=== PATIENT | female | born 1970 | race Caucasian/White ===

== ENCOUNTER 2019-02-23 18:08 | Observation (INO) ==
[~2019-02-23 18:08] MED LIST: Aminoglycoside Consult 1 EACH MC ONE
--- NOTE | 2019-02-23 19:45 | Emergency Department Note ---
Disposition Clinical Impression: Pneumonia Qualifiers: Pneumonia type: due to unspecified organism Laterality: right Lung location: lower lobe of lung Qualified Code(s): J18.1 - Lobar pneumonia, unspecified organism Anemia Qualifiers: Anemia type: unspecified type Qualified Code(s): D64.9 - Anemia, unspecified Disposition: Admitted As Inpatient Condition: Good Instructions: Bacterial Pneumonia (ED) Referrals: Elder Kang DO [Primary Care Provider] - Forms: ED Satisfaction Letter Time of Disposition: 21:11 General Adult HPI - General Chief complaint: ED Fever Stated complaint: Fever,Bodyaches Time Seen by Provider: 02/23/19 19:36 Source: patient, family Limitations: no limitations Nursing Notes Reviewed: Yes Vital Signs Reviewed: Yes - History of Present Illness HPI Narrative: 48-year-old female past medical history of hypertension, previous urosepsis presenting for 4 days of gradually progressive and worsening generalized malaise with body aches, fevers up to 103 managed well at home with Tylenol/ibuprofen. Patient states that since Friday she has felt general body aches, headaches, shortness of breath, mild intermittent cough. Patient denies nausea or vomiting no productive cough. Patient has no other medical conditions, no significant medications at this time. Onset (ago): day(s) Pain Severity: moderate Pain Scale: 5 Treatments Prior to Arrival: NSAID, other (Patient states she last took acetaminophen at 5:30 this evening.) - Related Data Home Medications Medication Instructions Recorded Confirmed Propranolol [Inderal] 20 mg PO DAILY 02/23/19 02/23/19 Spironolactone [Aldactone] 25 mg PO DAILY 02/23/19 02/23/19 l-Norgest/E.estradiol-E.estrad 1 each PO DAILY 02/23/19 02/23/19 [Seasonique 0.15-0.03-0.01 Tab] Allergies Allergy/AdvReac Type Severity Reaction Status Date / Time doxycycline Allergy Swelling Verified 02/23/19 18:28 of Lip/Tongue/Throat minocycline Allergy Swelling Verified 02/23/19 18:28 of Lip/Tongue/Throat Review of Systems: Constitutional: Admits fever, chills Cardiovascular: Admits chest pain which patient states is related to her generalized malaise and body aches/pains Respiratory: Admits to dyspnea Gastrointestinal: Denies: abdominal pain, nausea, vomiting, diarrhea, constipation, hematemesis, melena, hematochezia Genitourinary: Denies: hematuria Musculoskeletal: Denies: back pain, neck pain Neurological: Admits to headache and weakness Endocrine: Admits to fatigue All systems ED: reviewed and negative except as stated. Review of Systems: As Per HPI Physical Exam Constitutional: No acute distress, [id number], engaged to conversation, speech is fluid, answers questions appropriately Neuro: GCS 15, no overt focal neurological deficits Head: Atraumatic, normocephalic Eyes: Pupils equal, round and reactive to light, no scleral icterus, no conj unctival injection, mucous membranes appear pale Neck: Trachea midline without deviation. Anterior neck is supple without swelling. *Chest: Symmetric chest wall rise *Heart: Cardiac rhythm and rate are regular with S1 and S2 , no S3 or S4 appreciated, no murmurs, gallops, rubs, or clicks. *Lungs: Crackles noted in the right lower lobe, tachypnea, without accessory muscle use or prolonged expiratory phase. No wheezes, rhonchi or stridor appreciated. Abdomen: Abdomen is flat, soft to palpation, normal bowel sounds. No abdominal bruit auscultated. Non-distended, non-rigid, no organomegaly, no ascites appreciated. No pulsatile mass, no tenderness or guarding to palpation in all four quadrants, no rebound Extremities: Normal capillary refill without evidence of pedal edema, joint swelling or erythema. Pulses and motor intact in extremities Psychiatric exam: Patient displays a normal affect and mood for the environment. No overt signs of hallucination. Integumentary: Warm, clammy, intact, pale. No rash, cyanosis, diaphoresis, erythema - General Limitations: no limitations General appearance: alert, in no apparent distress - Rectal Exam Jitterbug Operator present during exam: Yes Rectal exam: Present: normal inspection, normal rectal tone. Absent: black stool, bloody stool, hemorrhoids Course Course Narrative: CBC, BMP, urinalysis, blood and urine cultures Lactic acid Two-view chest x-ray Ibuprofen for fever and discomfort. 500 mL IV fluid Hemoccult Vital Signs Temperature 100.0 F H 02/23/19 18:28 Pulse Rate 112 02/23/19 18:28 Respiratory Rate 18 02/23/19 18:28 Blood Pressure 127/82 02/23/19 18:28 O2 Sat by Pulse Oximetry 98 02/23/19 18:28 Temperature 100.0 F H 02/23/19 20:57 Pulse Rate 111 02/23/19 21:07 Respiratory Rate 24 02/23/19 21:07 Blood Pressure 107/72 02/23/19 21:07 O2 Sat by Pulse Oximetry 100 02/23/19 21:07 Oxygen Delivery Oxygen Delivery Room Air Medical Decision Making - MDM Narrative Medical decision making narrative: Chest x-ray shows right lower lobe pneumonia Patient be started on azithromycin and ceftriaxone here in ED Patient with anemia with hemoglobin 7.8 Concerns for urinary tract infection Patient be admitted to hospitalist medicine service for further evaluation and management of pneumonia with anemia and potential UTI Patient verbalizes understanding and agreement this plan. - Lab Data Lab results reviewed: Yes I reviewed the patient's lab results. Result diagrams: 02/23/19 20:11 02/23/19 20:11 Lab Results 02/23/19 02/23/19 02/23/19 Range/Units 18:42 20:11 20:11 WBC 7.0 (4.3-11.1) K/mcL RBC 3.38 L (3.82-4.97) M/mcL Hgb 7.8 L (11.5-15.4) g/dL Hct 25.9 L (35.3-44.9) % MCV 76.6 L (83.0-100.0) fL MCH 23.1 L (28.0-33.3) pg MCHC 30.1 L (31.6-35.5) g/dL RDW 15.2 H (11.5-14.5) % Plt Count 408 H (140-400) K/mcL MPV 9.1 L (9.4-12.4) fL Immature Gran % 1.4 (0-4) % Seg Neutrophils % 70.6 % Lymphocytes % 17.5 % Monocytes % 8.4 % Eosinophils % 1.4 % Basophils % 0.7 % Neutrophils # 5.0 (1.6-8.9) K/mcL Lymphocytes # 1.2 (0.6-4.6) K/mcL Monocytes # 0.6 (0.0-1.3) K/mcL Eosinophils # 0.1 (0.0-0.6) K/mcL Basophils # 0.1 (0.0-0.2) K/mcL Nucleated RBCs/100 WBC 0.9 H (0) /100 WBC Sodium 134 L (136-145) mEq/L Potassium 4.0 (3.5-5.1) mEq/L Chloride 100 (98-107) mEq/L Carbon Dioxide 25 (23-29) mEq/L BUN 8 (6-20) mg/dL Creatinine 0.94 (0.60-1.20) mg/dL Est GFR ( Amer) > 60 (> 60) Est GFR (Non-Af Amer) > 60 (> 60) BUN/Creatinine Ratio 9 (6-26) Glucose 97 (70-105) mg/dL Calculated Osmolality 276 L (280-300) Lactic Acid (0.5-2.2) mmol/L Calcium 9.7 (8.6-10.3) mg/dL Urine Color Dark Yellow (Yellow) Urine Clarity Cloudy A (Clear) Urine pH 6.0 (5.0-8.0) pH Units Ur Specific Ignacio 1.017 (1.010-1.025) Urine Protein 100 H (Neg-Trace) mg/dL Urine Glucose (UA) Normal (Normal) mg/dL Urine Ketones Trace H (Negative) mg/dL Urine Blood Large H (Negative) Urine Nitrite Negative (Negative) Urine Bilirubin Small H (Negative) Urine Urobilinogen Normal (Normal) mg/dL Ur Leukocyte Esterase Small H (Negative) Urine Microscopic RBC 15-30 H (0-3) per hpf Urine Microscopic WBC 30-50 H (0-3) per hpf Ur Squamous Epith Cells Many H (None-Few) per lpf Urine Bacteria Few (None-Few) per hpf Hyaline Casts Few (None-Few) per lpf Ur Culture Indicated? YES A (NO) 02/23/19 Range/Units 20:11 WBC (4.3-11.1) K/mcL RBC (3.82-4.97) M/mcL Hgb (11.5-15.4) g/dL Hct (35.3-44.9) % MCV (83.0-100.0) fL MCH (28.0-33.3) pg MCHC (31.6-35.5) g/dL RDW (11.5-14.5) % Plt Count (140-400) K/mcL MPV (9.4-12.4) fL Immature Gran % (0-4) % Seg Neutrophils % % Lymphocytes % % Monocytes % % Eosinophils % % Basophils % % Neutrophils # (1.6-8.9) K/mcL Lymphocytes # (0.6-4.6) K/mcL Monocytes # (0.0-1.3) K/mcL Eosinophils # (0.0-0.6) K/mcL Basophils # (0.0-0.2) K/mcL Nucleated RBCs/100 WBC (0) /100 WBC Sodium (136-145) mEq/L Potassium (3.5-5.1) mEq/L Chloride (98-107) mEq/L Carbon Dioxide (23-29) mEq/L BUN (6-20) mg/dL Creatinine (0.60-1.20) mg/dL Est GFR ( Amer) (> 60) Est GFR (Non-Af Amer) (> 60) BUN/Creatinine Ratio (6-26) Glucose (70-105) mg/dL Calculated Osmolality (280-300) Lactic Acid 1.4 (0.5-2.2) mmol/L Calcium (8.6-10.3) mg/dL Urine Color (Yellow) Urine Clarity (Clear) Urine pH (5.0-8.0) pH Units Ur Specific Ignacio (1.010-1.025) Urine Protein (Neg-Trace) mg/dL Urine Glucose (UA) (Normal) mg/dL Urine Ketones (Negative) mg/dL Urine Blood (Negative) Urine Nitrite (Negative) Urine Bilirubin (Negative) Urine Urobilinogen (Normal) mg/dL Ur Leukocyte Esterase (Negative) Urine Microscopic RBC (0-3) per hpf Urine Microscopic WBC (0-3) per hpf Ur Squamous Epith Cells (None-Few) per lpf Urine Bacteria (None-Few) per hpf Hyaline Casts (None-Few) per lpf Ur Culture Indicated? (NO) Attestation Statement - Attestation Attestation: I, Jag Cuellar, examined this patient and my medical decision-making was reviewed with the FAMILY SOCIOLOGIST/PA/Advanced Practice Nurse/Resident Physician. I agree with the documented findings, disposition and treatment plan as described except to the extent set forth below. 48-year-old female presents emergency department for evaluation of weakness, fatigue, fever, shortness of breath. Patient states symptoms started within the past 3 days. She denies recent trauma. She does have a history of recent breathing difficulties intermittently over the past year. 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 Patient is otherwise healthy. Laboratory evaluation showed anemia. She will be admitted for further evaluation of her anemia and started on antibiotics in the emergency department.
[2019-02-23] MEDS ORDERED: 0.9 % Sodium Chloride 500 ML IVC ONE (19:48)
[2019-02-23] MEDS ORDERED: Ibuprofen 600 MG TABLET PO ONE (19:54)
[2019-02-23 20:07] LABS: Bilirubin,Urine Small (Negative); Blood,Urine Large (Negative); Clarity,Urine Cloudy (Clear); Color,Urine Dark Yellow (Yellow); Glucose,Urine (UA) Normal (Normal); Ketones,Urine Trace mg/dL (Negative); Leukocyte Esterase,Urine Small (Negative); Nitrite,Urine Negative (Negative); Protein,Urine 100 mg/dL (Neg-Trace); Specific Gravity,Urine 1.017 (1.010-1.025); Urobilinogen,Urine Normal (Normal)
[2019-02-23 20:08] LABS: Bacteria,Urine Few per hpf (None-Few); Hyaline Casts,Urine Few per lpf (None-Few); RBC,Urine 15-30 per hpf (0-3); Squamous Epithelial Cell,Urine Many per lpf (None-Few); WBC,Urine 30-50 per hpf (0-3)
[2019-02-23] MEDS ORDERED: Azithromycin 500 MG in D5% in Water 250 ML IVPB ONE (20:19)
[2019-02-23 20:25] LABS: Basophils # 0.1 K/mcL (0.0-0.2); Basophils % 0.7 %; Eosinophils # 0.1 K/mcL (0.0-0.6); Eosinophils % 1.4 %; Hematocrit 25.9 % (35.3-44.9); Hemoglobin 7.8 g/dL (11.5-15.4); Immature Granulocytes % 1.4 % (0-4); Lymphocytes # 1.2 K/mcL (0.6-4.6); Lymphocytes % 17.5 %; Mean Corpuscular HGB Conc 30.1 g/dL (31.6-35.5); Mean Corpuscular Hemoglobin 23.1 pg (28.0-33.3); Mean Corpuscular Volume 76.6 fL (83.0-100.0); Mean Platelet Volume 9.1 fL (9.4-12.4); Monocytes # 0.6 K/mcL (0.0-1.3); Monocytes % 8.4 %; Nucleated Red Blood Cells 0.9 /100 WBC (0); Platelet Count 408 K/mcL (140-400); Red Blood Count 3.38 M/mcL (3.82-4.97); Red Cell Distribution Width 15.2 % (11.5-14.5); Segmented Neutrophils % 70.6 %
[2019-02-23] MEDS ORDERED: cefTRIAXone 1,000 MG in Water for inj. (sterile) 20 ML 10 ML IVP ONE (20:28)
[2019-02-23 20:42] LABS: BUN/Creatinine Ratio 9 (6-26); Blood Urea Nitrogen 8 mg/dL (6-20); Calcium 9.7 mg/dL (8.6-10.3); Carbon Dioxide 25 mEq/L (23-29); Chloride 100 mEq/L (98-107); Glucose 97 mg/dL (70-105); Osmolality,Calculated 276 (280-300); Sodium 134 mEq/L (136-145); eGFR For Non-African Americans > 60 (> 60)
[2019-02-24 00:13] LABS: Hemoglobin 7.3 g/dL (11.5-15.4)
--- NOTE | 2019-02-24 02:19 | Internal Med History&Physical ---
<Uriel Dumont S - Last Filed: 02/24/19 03:36> Date of Encounter: 02/24/19 Time of Encounter: 02:42 Internal Medicine - H&P: HPI Chief complaint: felt sick Admitted From: Home Plans for Post Hospital Care: Home History of present illness: Ms. Erickson is a 48 year old female with PMH of HTN, obesity and headaches. She comes in with a 4 day history of increasing body aches and malaise. 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 She states that she has had fevers t max of 102. She states she took nothing for this. She went to an urgent care but they told her that she didn't have the flu and to go home. She has had some SOB and cough, some sputum production. She denies any chest pain, N/V/D, abd pain. She also denies recent hospitalization in the last 90 days, IV abx in the last 90 days. She states that she has not had any urinary changes, dysuria, hematuria or increased frequency. She does state that her life has been particularly st ressful lately and her father just had a LHC and her daughter had a high risk . She is also being worked up at [facility] for dysfunctional uterine bleeding. She was recently put on OCP so that she only has a period 1x every 3 mos. She has a hx of heavy periods, causing her anemia so she says and that she has always had a low hemoglobin. She denies personal or family hx of gynecological ca. She denies personal or fam hx of CRC and has never had a colonoscopy. In the ER she was found to have a hemoglobin of 7.8 and a UA (+) and XR showing Right lower lobe pneumonia. She was given azithromycin, augmentin and rocephin in the ER. Blood cx and urine cx were drawn. She was sent up to the floor for observation and further treatment. Past Med Surg Social Fam HX - Past Medical History Medical history: hypertension Psychiatric history: no psych history - Social History Smoking Status: Never smoker Smokeless Tobacco Status: No Alcohol use: occasionally Drug use: none - Family History Father Adopted: No Race: Living Status: Still Living Hx Family Cancer: No Hx Family Endocrine Disorder: Yes (DM) Mother Adopted: No Race: Hx Family Cancer: No Internal Medicine - H&P: Meds Propranolol [Inderal] 20 mg PO DAILY 02/23/19 [History] Spironolactone [Aldactone] 25 mg PO DAILY 02/23/19 [History] l-Norgest/E.estradiol-E.estrad [Seasonique 0.15-0.03-0.01 Tab] 1 each PO DAILY 02/23/19 [History] Allergy/AdvReac Type Severity Reaction Status Date / Time doxycycline Allergy Swelling Verified 02/23/19 18:28 of Lip/Tongue/Throat minocycline Allergy Swelling Verified 02/23/19 18:28 of Lip/Tongue/Throat All Systems PM: A 10-system review of systems was performed and is negative for pertinent findings except as documented above in the HPI. - Constitutional Constitutional: chills, fever(s), lethargy, malaise - EENT Eyes: no blurry vision, no change in vision Ears: no tinnitus - Cardiovascular Cardiovascular ROS IM: dyspnea, dyspnea on exertion, no chest pain, no lightheadedness, no palpitations - Respiratory Respiratory: cough, dyspnea on exertion, chest congestion, no hemoptysis, no excessive phlegm production - Gastrointestinal Gastrointestinal: no abdominal pain, no diarrhea, no nausea, no vomiting - Musculoskeletal Musculoskeletal ROS IM: muscle weakness, no back pain - Integumentary Integumentary IM: no pruritus, no rash - Neurological Neurological ROS: headache(s), no dizziness - Psychiatric Psychiatric: no confusion - Endocrine Endocrine IM: fatigue - Hematologic/Lymphatic Hematologic/Lymphatic: no easy bleeding, no easy bruising - Constitutional Vitals: Temp Pulse Resp BP Pulse Ox 97.9 F 81 18 112/72 98 02/23/19 23:34 02/23/19 23:34 02/23/19 23:34 02/23/19 23:34 02/23/19 23:34 Exam: general - aox3, pleasant, laying in bed comfortable, NAD HEENT - ncat, mmm, no scleral icterus neck - trachea midline, neck supple cardio - tacycardia, s1s2, cta, no mrg lungs - decreased breath sounds on the right, no corase BS noted, not in respiratory distress abd - obese, soft, ntnd, no peritoneal signs, no periumbilical tenderness back - no paraspinal tenderness, no cva tenderness extremeities - moves all extremeties equally, strength 5/5 skin - warm, dry, intact psych - appropriate mood/affect neuro - no fnd, cn2-12 grossly intact Internal Med - H&P Results - Labs CBC & Chem 7: 02/23/19 23:46 02/23/19 20:11 Labs: Short CBC 02/23/19 02/23/19 Range/Units 20:11 23:46 WBC 7.0 (4.3-11.1) K/mcL Hgb 7.8 L 7.3 L (11.5-15.4) g/dL Hct 25.9 L 24.0 L (35.3-44.9) % Plt Count 408 H (140-400) K/mcL Neutrophils # 5.0 (1.6-8.9) K/mcL BMP 02/23/19 20:11 Sodium 134 L Potassium 4.0 Chloride 100 Carbon Dioxide 25 BUN 8 Creatinine 0.94 Glucose 97 Calcium 9.7 Urine 02/23/19 Range/Units 18:42 Urine Color Dark Yellow (Yellow) Urine Clarity Cloudy A (Clear) Urine pH 6.0 (5.0-8.0) pH Units Ur Specific Dalton 1.017 (1.010-1.025) Urine Protein 100 H (Neg-Trace) mg/dL Urine Glucose (UA) Normal (Normal) mg/dL - Impressions ITS Impressions Chest X-Ray 02/23/19 19:46 IMPRESSION: Right lower lobe pneumonia. Follow-up to complete clearing is recommended. D/ / Niko Jordan MD / Niko Jordan MD Interpreting Provider: Niko Jordan MD - Assessment and Plan (1) Pneumonia Current Visit: Yes Status: Acute Assessment and plan: Pt with c/o increasing malaise, SOB, body aches - is a nurse at 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 Meets 1/4 SIRS criteria - t max 100.0, no white count, HR max of 112 Plan: - blood cx pending - sputum cx pending - RIP pending - urine antigens pending - start zosyn, azithromycin, and vancomycin day 1 - continue 100cc/hr 0.9% NS - FEN: regular diet - DVT prophylaxis: SCD - dispo: observation with monitoring of H&H, inpatient IV abx Qualifiers: Pneumonia type: due to unspecified organism Laterality: right Lung location: lower lobe of lung Qualified Code(s): J18.1 - Lobar pneumonia, unspecified organism (2) UTI (urinary tract infection) Current Visit: Yes Status: Acute Assessment and plan: Pt with UTI as evidenced on UA - denies hematuria, dysuria, increased frequency of urination UA (+) for ketones, blood, leukocyte esterase, 30-50 WBC Plan: - urine cx pending - abx as above for PNA Qualifiers: Urinary tract infection type: acute cystitis Hematuria presence: without hematuria Qualified Code(s): N30.00 - Acute cystitis without hematuria (3) Dysfunctional uterine bleeding Current Visit: No Status: Chronic Assessment and plan: Pt reports extremely heavy periods. Has not had vaginal bleeding in 3 weeks, does report getting outpatient workup by OBGYN currently. Consider OBGYN consult while in hospital. (4) Headache Current Visit: Yes Status: Acute Assessment and plan: Pt continues to c/o headache. One time percocet ordered. Resume home maxalt, has hx of migraines. Qualifiers: Headache type: unspecified Headache chronicity pattern: unspecified pattern Intractability: intractable Qualified Code(s): R51 - Headache (5) Hypertension Current Visit: No Status: Chronic Assessment and plan: chronic, well controlled. Resume home medications. Qualifiers: Hypertension type: essential hypertension Qualified Code(s): I10 - Essential (primary) hypertension (6) Obesity Current Visit: No Status: Chronic Assessment and plan: BMI 30. Chronic, counseled. Qualifiers: Obesity type: due to excess calories Obesity classification: adult class 1 (BMI 30 - 34.9) Serious obesity comorbidity presence: without serious comorbidity Body mass index: BMI 30.0-30.9 Qualified Code(s): E66.09 - Other obesity due to excess calories; Z68.30 - Body mass index (BMI) 30.0-30.9, adult (7) Anemia Current Visit: Yes Status: Acute Assessment and plan: Pt reports hx of chronic anemia, no baseline to compare in [facility] Admission hemoglobin 7.8, repeat 7.2 Has low MCV FOBT (-), never has had a colonoscopy denies personal hx of family hx of CRC Does have a hx of dysfxnal uterine bleeding, is being worked up as an outpatient in [facility] Plan: - H&H q6hr - transfuse to keep Hgb>7 - iron profile pending - IV iron planned for AM - consider OBGYN consult if hemoglobin continues to drop - IVP protinix q12hr Qualifiers: Anemia type: unspecified type Qualified Code(s): D64.9 - Anemia, unspecified (8) DVT prophylaxis Current Visit: Yes Status: Acute Assessment and plan: scd - Time Spent With Patient Total time spent is greater than 50% in coordination of care (as documented) at patient's floor/unit and/or counseling patient: 25 - 35 minutes <Barrie Begum - Last Filed: 02/24/19 07:16> Date of Encounter: 02/24/19 Internal Medicine - H&P: HPI History of present illness: Ms. Erickson is a 48 year old female All Systems PM: A 10-system review of systems was performed and is negative for pertinent findings except as documented above in the HPI. - Constitutional Vitals: Temp Pulse Resp BP Pulse Ox 98.6 F 82 16 117/80 100 02/24/19 03:18 02/24/19 03:18 02/24/19 03:18 02/24/19 03:18 02/24/19 03:18 Internal Med - H&P Results - Labs CBC & Chem 7: 02/24/19 03:53 02/24/19 03:53 Labs: Short CBC 02/23/19 02/23/19 02/24/19 Range/Units 20:11 23:46 03:53 WBC 7.0 5.6 (4.3-11.1) K/mcL Hgb 7.8 L 7.3 L 7.7 L (11.5-15.4) g/dL Hct 25.9 L 24.0 L 26.0 L (35.3-44.9) % Plt Count 408 H 376 (140-400) K/mcL Neutrophils # 5.0 (1.6-8.9) K/mcL BMP 02/23/19 02/24/19 20:11 03:53 Sodium 134 L 136 Potassium 4.0 3.6 Chloride 100 103 Carbon Dioxide 25 22 L BUN 8 8 Creatinine 0.94 0.90 Glucose 97 121 H Calcium 9.7 9.2 Urine 02/23/19 Range/Units 18:42 Urine Color Dark Yellow (Yellow) Urine Clarity Cloudy A (Clear) Urine pH 6.0 (5.0-8.0) pH Units Ur Specific Dalton 1.017 (1.010-1.025) Urine Protein 100 H (Neg-Trace) mg/dL Urine Glucose (UA) Normal (Normal) mg/dL - Impressions ITS Impressions Chest X-Ray 02/23/19 19:46 IMPRESSION: Right lower lobe pneumonia. Follow-up to complete clearing is recommended. D/ / Niko Jordan MD / Niko Jordan MD Interpreting Provider: Niko Jordan MD - Time Spent With Patient Total time spent is greater than 50% in coordination of care (as documented) at patient's floor/unit and/or counseling patient: - Attending Attestation I saw and evaluated the patient. I reviewed the residents note, performed my own physical examination and agree with findings and plan as documented in the residents note. Patient seen and examined on 02/24/19. Patient presents with pneumonia, UTI and anemia. Has history of vaginal bleeding. Being worked up for this outpatient. 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 Patient did have a drop in her hemoglobin, will continue to monitor this closely.
[2019-02-24] MEDS ORDERED: Naloxone 0.4 MG/ML INJ IVP PRN (02:45)
[2019-02-24] MEDS ORDERED: 0.9 % Sodium Chloride 1,000 ML IVC SCH (02:45)
[2019-02-24] MEDS ORDERED: *HR* OxyCODONE/APAP 10/325 TABLET PO ONE (02:47)
[2019-02-24 04:07] LABS: Hemoglobin 7.7 g/dL (11.5-15.4); Mean Corpuscular HGB Conc 29.6 g/dL (31.6-35.5); Mean Corpuscular Volume 77.6 fL (83.0-100.0); Mean Platelet Volume 9.1 fL (9.4-12.4); Platelet Count 376 K/mcL (140-400); Red Blood Count 3.35 M/mcL (3.82-4.97); Red Cell Distribution Width 15.2 % (11.5-14.5)
[2019-02-24 04:26] LABS: % Iron Saturation 3 % (15-50); BUN/Creatinine Ratio 9 (6-26); Blood Urea Nitrogen 8 mg/dL (6-20); Calcium 9.2 mg/dL (8.6-10.3); Carbon Dioxide 22 mEq/L (23-29); Chloride 103 mEq/L (98-107); Glucose 121 mg/dL (70-105); Iron 16 mcg/dL (50-170); Osmolality,Calculated 282 (280-300); Potassium 3.6 mEq/L (3.5-5.1); Sodium 136 mEq/L (136-145); Transferrin 373 mg/dL (203-362); eGFR For Non-African Americans > 60 (> 60)
[2019-02-24 05:29] LABS: Adenovirus Not Detected (Not Detect); Bordetella Pertussis Not Detected (Not Detect); Chlamydophila pneumoniae Not Detected (Not Detect); Coronavirus 229E Not Detected (Not Detect); Coronavirus HKU1 Not Detected (Not Detect); Coronavirus NL63 Not Detected (Not Detect); Coronavirus OC43 Not Detected (Not Detect); Human Metapneumovirus Not Detected (Not Detect); Human Rhinovirus/Enterovirus Not Detected (Not Detect); Influenza A Subtype 2009 H1 Not Detected (Not Detect); Influenza A Untypeable Not Detected (Not Detect); Influenza B Not Detected (Not Detect); Mycoplasma pneumoniae Not Detected (Not Detect); Parainfluenza Virus 1 Not Detected (Not Detect); Parainfluenza Virus 2 Not Detected (Not Detect); Parainfluenza Virus 3 Not Detected (Not Detect); Parainfluenza Virus 4 Not Detected (Not Detect); Respiratory Syncytial Virus Not Detected (Not Detect)
[2019-02-24] MEDS ORDERED: Piperacillin/Tazobactam 3.375 GM in 0.9 % Sodium Chloride Mini Bag 100 ML IVPB SCH (06:00)
[2019-02-24] MEDS ORDERED: Pantoprazole 40 MG VIAL IVP SCH (06:00)
[2019-02-24 07:38] VITALS: BP 112/75
[2019-02-24] MEDS ORDERED: Azithromycin 500 MG in D5% in Water 250 ML IVPB SCH (08:00)
[2019-02-24] MEDS ORDERED: Vancomycin (wt based) 1,000 MG VIAL IVPB SCH (09:00)
[2019-02-24] MEDS ORDERED: Spironolactone 25 MG TABLET PO SCH (09:00)
[2019-02-24] MEDS ORDERED: SEASONIQUE PO SCH (09:00)
[2019-02-24] MEDS ORDERED: SUMAtriptan succinate 25 MG TABLET PO PRN (10:00)
--- NOTE | 2019-02-24 10:24 | Electrocardiograph Report ---
[place] [id number] Test Date: 2019-02-23 Pat Name: Aditi Erickson Department: [id number] Room: 3B16 Gender: F [employer]: : [id number] Requested By: Jey Muñoz Order Number: [id number] Reading MD: Cristobal Santana Measurements Intervals [place] Rate: 90 P: 46 [place]: 129 QRS: 5 QRSD: 77 T: 19 QT: 354 QTc: 434 Interpretive Statements Sinus rhythm Baseline wander in lead(s) V1 V5 Electronically Signed On 02-24-2019 10:23:19 EDT by Cristobal Santana
--- NOTE | 2019-02-24 11:18 | Discharge Summary ---
- NOTES TO OUTPATIENT PROVIDER Notes to Outpatient Provider: Follow with PCP in one week. Please continue antibiotics as directed. Orders not resulted at time of discharge: Pending orders 02/23/19 18:42 Culture,Urine [RM] Stat 02/23/19 20:11 Culture,Blood [BC] Stat 02/24/19 02:55 Sputum Culture [Culture,Sputum with Gram Stain] [RM] Routine 02/24/19 10:00 CBC no Diff [Complete Blood Count w/o Diff] [HEME] Timed Date of Encounter: 02/24/19 Time of Encounter: 11:13 - Discharge Diagnosis (1) Pneumonia Priority: Primary Status: Acute Qualifiers: Pneumonia type: due to unspecified organism Laterality: right Lung location: lower lobe of lung Qualified Code(s): J18.1 - Lobar pneumonia, unspecified organism (2) Anemia Priority: Secondary Status: Acute Qualifiers: Anemia type: unspecified type Qualified Code(s): D64.9 - Anemia, unspecified (3) UTI (urinary tract infection) Priority: Secondary Status: Acute Qualifiers: Urinary tract infection type: acute cystitis Hematuria presence: without he maturia Qualified Code(s): N30.00 - Acute cystitis without hematuria (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 (5) DVT prophylaxis Priority: Secondary Status: Acute (6) Headache Priority: Secondary Status: Acute Qualifiers: Headache type: unspecified Headache chronicity pattern: unspecified pattern Intractability: intractable Qualified Code(s): R51 - Headache (7) Hypertension Priority: Secondary Status: Chronic Qualifiers: Hypertension type: essential hypertension Qualified Code(s): I10 - Essential (primary) hypertension (8) Obesity Priority: Secondary Status: Chronic Qualifiers: Obesity type: due to excess calories Obesity classification: adult class 1 (BMI 30 - 34.9) Serious obesity comorbidity presence: without serious aminah rbidity Body mass index: BMI 30.0-30.9 Qualified Code(s): E66.09 - Other obesity due to excess calories; Z68.30 - Body mass index (BMI) 30.0-30.9, adult Hospital course: Ms. Erickson is a 48 year old female with PMH of HTN, obesity, dysfunctional uterine bleeding currently on OCP and headaches pt presented to ER with 4 day history of increasing body aches and malaise. She is a nurse at [employer] and states that she has been exposed to many sick people recently. She states that she has had fevers t max of 102. In the ER she was found to have a hemoglobin of 7.8 and a UA (+) and XR showing Right lower lobe pneumonia. She was given azithromycin, augmentin and rocephin in the ER. Blood cx and urine cx were drawn. She was admitted in the hospital and placed her on abx Vanco, Azithromycin and Zosyn. Pt stated she is feeling much better today and wanted to go home. I recommend her to stay in the hospital one more day for IV abx, however she does not want to stay in the hospital and wanted to go home today. She is breathing comfortably on room air. Remained afebrile since yesterday. So will d/c her home on PO Abx Augmentin x 6 days, Azithromycin for 4 more days. - Time Spent with Patient Total time spent providing and/or coordinating discharge services: Time spent: D/C greater than 8 hours after Admission (I did provide [id number] service this patient more than 8 hours apart since patient was admitted in the hospital by my colleague) - Discharge Medications Prescriptions: New Amoxicillin/Clavulanate [Augmentin] 875 mg PO BIDWM #12 tablet Azithromycin 250 mg PO DAILY #4 tablet Ferrous Sulfate 324 mg PO BID #60 tablet. Continued Spironolactone [Aldactone] 25 mg PO DAILY Propranolol [Inderal] 20 mg PO DAILY l-Norgest/E.estradiol-E.estrad [Seasonique 0.15-0.03-0.01 Tab] 1 each PO DAILY Home Medications: Propranolol [Inderal] 20 mg PO DAILY 02/23/19 [History] Spironolactone [Aldactone] 25 mg PO DAILY 02/23/19 [History] l-Norgest/E.estradiol-E.estrad [Seasonique 0.15-0.03-0.01 Tab] 1 each PO DAILY 02/23/19 [History] Amoxicillin/Clavulanate [Augmentin] 875 mg PO BIDWM #12 tablet 02/24/19 [Rx] Azithromycin 250 mg PO DAILY #4 tablet 02/24/19 [Rx] Ferrous Sulfate 324 mg PO BID #60 tablet. 02/24/19 [Rx] Allergies/Adverse Reactions: Allergy/AdvReac Type Severity Reaction Status Date / Time doxycycline Allergy Swelling Verified 02/23/19 18:28 of Lip/Tongue/Throat minocycline Allergy Swelling Verified 02/23/19 18:28 of Lip/Tongue/Throat Date of admission: 02/23/19 22:00 Primary care physician: Elder Kang Consults: 02/24/19 09:14 Consult to Nurse Navigator [CONS] Routine Comment: PNEUMONIA - Constitutional Vitals: Temp Pulse Resp BP Pulse Ox 97.9 F 88 16 112/75 96 02/24/19 07:35 02/24/19 07:35 02/24/19 07:35 02/24/19 07:35 02/24/19 07:35 General appearance: Present: A&O X 3 Exam: Gen: Alert, awake, Oriented to time,place and person Chest: Diminished breath sounds B/L, No wheezing, No crackles, No rales Heart: S1S2+ RRR No murmurs Abd: Soft, NT, BS +, No organomegaly Ext: No edema, pulses are palpable, No calf tenderness Neuro : Benign findings Skin: No rash. - Patient Status Disposition: Home, Self-Care Condition: Good Overall status at discharge: patient is back to baseline - Discharge Instructions Follow Up With: Elder Kang DO [Primary Care Provider] - - Diet and Activity Activity: increase activity as tolerated Diet: low salt diet
== END 2019-02-24 11:38 | disposition home or self-care (01) ==
LOC: 3BNU 18:08 → EMEROOARM 18:08 → 3BNU 23:36
PROVIDERS: ADMIT Family Medicine; ATTEND Family Medicine